=== PATIENT | male | born 1980 | race Caucasian/White ===

== ENCOUNTER 2016-08-15 04:25 | Emergency (ER) | payer OTHER ==
[~2016-08-15] VITALS: Ht 188 cm; Wt 111.9 kg
[~2016-08-15 04:25] MED LIST: DILAUDID2 MG PO; ELAVIL10 MG PO; FIORICET WI1 CAPSULE PO; FLEXERIL10 MG PO; FLEXERIL5 MG PO; FLOMAX0.4 MG PO; GABAPENTIN600 MG PO; LUNESTA PO; MOTRIN800 MG PO; NAPROSYN500 MG PO; NAPROXEN500 MG PO; NEURONTIN400 MG PO; NOHOMEMEDS; OPANA ER10 MG PO; OXYCODONE HCL10 MG PO; TRAMADOL HCL50 MG PO; TRAZAMINE CONVE50 MG PO; ULTRAM50 MG PO; ZOFRAN4 MG PO
[2016-08-15] MEDS ORDERED: NAPROSYN500 MG PO (05:18)
[2016-08-15 05:36] VITALS: BP 152/100
== END 2016-08-15 05:37 | disposition home or self-care (01) ==
LOC: EME 04:25
DX: S00.83XA Contusion of other part of head, initial encounter (principal); R07.0 Pain in throat; R42 Dizziness and giddiness; M25.531 Pain in right wrist; Y00.XXXA Assault by blunt object, initial encounter; Y07.499 Other family member, perpetrator of maltreatment and neglect; I10 Essential (primary) hypertension; Z87.442 Personal history of urinary calculi; I25.2 Old myocardial infarction; R56.9 Unspecified convulsions
CPT/HCPCS: 70450; 71020; 72125

== ENCOUNTER 2016-10-30 02:10 | Emergency (ER) | payer OTHER ==
[~2016-10-30] VITALS: Ht 175.3 cm; Wt 113.9 kg
[2016-10-30] MEDS ORDERED: TRAMADOL HCL50 MG PO (03:21)
[2016-10-30] MEDS ORDERED: VALIUM5 MG PO (03:21)
[2016-10-30 03:40] VITALS: BP 131/101
== END 2016-10-30 03:41 | disposition home or self-care (01) ==
LOC: EME 02:10
DX: G89.29 Other chronic pain (principal); M54.5 Low back pain; Z98.1 Arthrodesis status
CPT/HCPCS: 99281; 99283

== ENCOUNTER 2017-08-04 12:06 | Emergency (ER) | payer BC ==
[~2017-08-04] VITALS: Ht 185.4 cm; Wt 116.4 kg
[~2017-08-04 12:06] MED LIST changes: +VALIUM5 MG PO
[2017-08-04 12:26] LABS: HEMOGLOBIN 14.8 G/DL (12.5-16.6); MCH 28.6 PG (29.0-34.0); MCHC 33.6 G/DL (30.0-36.0); MCV 84.9 FL (86-99); RBC DIS.WIDTH-CV 13.2 % (11.8-14.6); RED BLOOD COUNT 5.18 M/uL (4.00-5.50); WHITE BLOOD COUNT 9.6 K/uL (4.1-10.2)
[2017-08-04 12:37] LABS: ALBUMIN 4.9 g/dL (3.2-4.8)
[2017-08-04 12:38] LABS: CHLORIDE 105 mEq/L (99-109); POTASSIUM 4.3 mEq/L (3.7-5.4); SODIUM 140 mEq/L (136-147)
[2017-08-04 12:40] LABS: GLUCOSE 86 mg/dL (70-99)
[2017-08-04 12:42] LABS: TOTAL BILIRUBIN 0.3 mg/dL (0.0-1.0)
[2017-08-04 12:43] LABS: ALKALINE PHOSPHATASE 93 IU/L (3-129)
[2017-08-04 12:44] LABS: CREATININE 0.9 mg/dL (0.6-1.3); GFR ESTIMATE (CALCULATED) > 59 mL/min/ (58.99-99999)
[2017-08-04 12:45] LABS: AST (GOT) 27 IU/L (2-34); UREA NITROGEN (BUN) 13 mg/dL (9-23)
[2017-08-04 12:46] LABS: ALT (GPT) 48 IU/L (3-49)
[2017-08-04 12:46] LABS: APPEARANCE CLEAR ((CLEAR)); BILIRUBIN NEGATIVE; BLOOD NEGATIVE; COLOR STRAW ((YELLOW)); GLUCOSE (STRIP) NEGATIVE; KETONES NEGATIVE; LEUKOCYTES NEGATIVE; NITRITE NEGATIVE; PROTEIN (STRIP) NEGATIVE; SPECIFIC GRAVITY 1.003 (1.000-1.030); UCUL ADDED? NO; UROBILINOGEN 0.2 MG/DL (0.2-1.0)
[2017-08-04 13:08] LABS: PLAT.SUFFICIENCY ADEQUATE; PLATELET COUNT 198 K/uL (156-360)
[2017-08-04] MEDS ORDERED: FLEXERIL10 MG PO (13:34)
[2017-08-04] MEDS ORDERED: ULTRAM50 MG PO (13:35)
[2017-08-04 13:55] VITALS: BP 128/89
== END 2017-08-04 13:56 | disposition home or self-care (01) ==
LOC: EME 12:06
DX: M54.40 Lumbago with sciatica, unspecified side (principal); R35.0 Frequency of micturition; Z98.1 Arthrodesis status; Z87.442 Personal history of urinary calculi
CPT/HCPCS: 80053; 81003; 85027

== ENCOUNTER 2017-09-02 06:23 | Emergency (ER) | payer BC ==
[~2017-09-02] VITALS: Ht 188 cm; Wt 114.1 kg
[2017-09-02] MEDS ORDERED: NAPROSYN500 MG PO (10:56)
[2017-09-02 11:04] VITALS: BP 120/81
== END 2017-09-02 11:07 | disposition home or self-care (01) ==
LOC: EME 06:23
DX: S93.401A Sprain of unspecified ligament of right ankle, initial encounter (principal); X58.XXXA Exposure to other specified factors, initial encounter
CPT/HCPCS: 73610; 99281; 99284; J1885

== ENCOUNTER 2017-09-23 11:40 | Emergency (ER) | payer BC ==
[~2017-09-23] VITALS: Ht 188 cm; Wt 113.2 kg
[2017-09-23 12:17] LABS: HEMATOCRIT 41.9 % (38.0-50.0); HEMOGLOBIN 13.8 G/DL (12.5-16.6); MCH 27.7 PG (29.0-34.0); MCHC 32.9 G/DL (30.0-36.0); PLATELET COUNT 214 K/uL (156-360); RBC DIS.WIDTH-CV 13.3 % (11.8-14.6); RBC DIS.WIDTH-SD 40.7 % (39-53); RED BLOOD COUNT 4.99 M/uL (4.00-5.50); WHITE BLOOD COUNT 9.3 K/uL (4.1-10.2)
[2017-09-23 12:28] LABS: CHLORIDE 109 mEq/L (99-109); POTASSIUM 4.2 mEq/L (3.7-5.4); SODIUM 143 mEq/L (136-147)
[2017-09-23 12:30] LABS: GLUCOSE 93 mg/dL (70-99)
[2017-09-23 12:34] LABS: CREATININE 0.9 mg/dL (0.6-1.3); GFR ESTIMATE (CALCULATED) > 59 mL/min/ (58.99-99999); UREA NITROGEN (BUN) 18 mg/dL (9-23)
[2017-09-23 15:29] VITALS: BP 141/90
== END 2017-09-23 16:06 | disposition home or self-care (01) ==
LOC: EME 11:40
DX: R20.0 Anesthesia of skin (principal); H53.8 Other visual disturbances; R51 Headache; Z86.73 Personal history of transient ischemic attack (TIA), and cerebral infarction without residual deficits; I25.2 Old myocardial infarction; I10 Essential (primary) hypertension
CPT/HCPCS: 70450; 70553; 80048; 85027; 93005; 99281; 99285; J7040

== ENCOUNTER 2018-03-09 19:42 | Emergency (ER) | payer BC ==
[~2018-03-09] VITALS: Ht 188 cm; Wt 111.1 kg
[2018-03-09] MEDS ORDERED: INDOCIN50 MG PO (21:35)
[2018-03-09 21:52] VITALS: BP 149/86
== END 2018-03-09 22:14 | disposition home or self-care (01) ==
LOC: EME 19:42
DX: S89.91XA Unspecified injury of right lower leg, initial encounter (principal); W01.0XXA Fall on same level from slipping, tripping and stumbling without subsequent striking against object, initial encounter; Y92.009 Unspecified place in unspecified non-institutional (private) residence as the place of occurrence of the external cause; M70.41 Prepatellar bursitis, right knee; I10 Essential (primary) hypertension; I25.2 Old myocardial infarction; Z86.73 Personal history of transient ischemic attack (TIA), and cerebral infarction without residual deficits; Z87.891 Personal history of nicotine dependence
CPT/HCPCS: 73564; 99281; 99283